=== PATIENT | female | born 2000 | race Caucasian/White ===

== ENCOUNTER 2019-01-25 19:42 | Emergency (ER) | payer BC ==
--- NOTE | 2019-01-25 19:48 | UC ---
Lower Extremity/Ankle HPI - HPI Summary HPI Summary: 18 yo female presents with LEFT ankle injury. She tells me that earlier today she was playing in her softball game and a line drive hit her in the outside of her left ankle. Since that time she has been having pain and unable to walk due to pain. The wellness trainer wrapped it in an ART wrap and applied ice and gave her crutches. Pt has been using crutches since the injury. - History of Current Complaint Stated Complaint: LEFT ANKLE/FOOT INJURY Time Seen by Provider: 01/25/19 19:46 Hx Obtained From: Patient Onset/Duration: Sudden Onset Severity Initially: Moderate Severity Currently: Moderate Pain Intensity: 6 Pain Scale Used: 0-10 Numeric Alleviating Factor(s): Rest, Elevation - Allergies/Home Medications Allergies/Adverse Reactions: Allergies Allergy/AdvReac Type Severity Reaction Status Date / Time No Known Allergies Allergy Verified 01/25/19 19:55 Home Medications: Home Medications Ibuprofen TAB* [Motrin TAB* 800 MG] 800 mg PO ONCE 01/25/19 [History Confirmed 01/25/19] l-Norgest/E.estradiol-E.estrad [Seasonique 0.15-0.03-0.01 Tab] 1 each PO DAILY 01/25/19 [History Confirmed 01/25/19] PMH/Surg Hx/FS Hx/Imm Hx - Additional Past Medical History Additional PMH: None Review of Systems All Other Systems Reviewed And Are Negative: Yes Constitutional: Positive: Negative Skin: Positive: Negative Respiratory: Positive: Negative Cardiovascular: Positive: Negative Neurovascular: Positive: Negative Musculoskeletal: Positive: Other: - Left ankle pain Neurological: Positive: Negative Psychological: Positive: Negative Physical Exam - Summary Physical Exam Summary: GENERAL: NAD. WDWN. No pain distress. SKIN: No rashes, sores, lesions, or open wounds. CHEST: No accessory muscle use. Breathing comfortably and in no distress. CV: Pulses intact PT and DP. Cap refill <2seconds MSK: LEFT ANKLE: Mild TTP overlying lateral malleolus, inferior and posterior lateral malleolus, and left 5th MTP pain. FROM. Strength 5/5. No edema or obvious bony deformities. Negative talar tilt. No increased laxity. NEURO: Alert. Sensations intact and symmetric B/L LEs PSYCH: Age appropriate behavior. Triage Information Reviewed: Yes Vital Signs: Vital Signs: Temp Pulse Resp BP Pulse Ox 98.3 F 66 16 123/57 100 01/25/19 19:51 01/25/19 19:51 01/25/19 19:51 01/25/19 19:51 01/25/19 19:51 Vital Signs Reviewed: Yes Lower Extremity Course/Dx - Course Course Of Treatment: XR: No radiologist reading after 1800, therefore wet read by myself is negative for fracture. I suspect her pain is due to the impact of the softball and advised to treat as a contusion. A gel splint and ART wrap were applied. Advised to RICE and use crutches. F/u if symptoms do not improve in a few days. - Differential Dx/Diagnosis Provider Diagnosis: Contusion of left ankle Discharge - Sign-Out/Discharge Documenting (check all that apply): Patient Departure All imaging exams completed and their final reports reviewed: No - Discharge Plan Condition: Stable Disposition: HOME Patient Education Materials: Contusion in Adults (ED) Referrals: Barbara Poe NP [Primary Care Provider] - Additional Instructions: If you develop a fever, shortness of breath, chest pain, new or worsening symptoms - please call your PCP or go to the ED. 1) Rest, Ice, and elevate your ankle/foot as much as possible 2) Use the ART wrap and gel splint for support and comfort 3) Use the crutches to be non-weight bearing until you are feeling better 4) If your symptoms do not improve in 5-7 days, please be rechecked - Billing Disposition and Condition Condition: STABLE Disposition: Home
[2019-01-25 19:54] VITALS: BP 123/57
--- NOTE | 2019-01-26 07:20 | UC ---
- Progress Note Progress Note: wet read correct Course/Dx - Diagnoses Provider Diagnoses: Contusion of left ankle Discharge - Sign-Out/Discharge Documenting (check all that apply): Post-Discharge Follow Up All imaging exams completed and their final reports reviewed: Yes - Discharge Plan Condition: Stable Disposition: HOME Patient Education Materials: Contusion in Adults (ED) Referrals: Barbara Poe [employer] [Primary Care Provider] - Additional Instructions: If you develop a fever, shortness of breath, chest pain, new or worsening symptoms - please call your PCP or go to the ED. 1) Rest, Ice, and elevate your ankle/foot as much as possible 2) Use the ART wrap and gel splint for support and comfort 3) Use the crutches to be non-weight bearing until you are feeling better 4) If your symptoms do not improve in 5-7 days, please be rechecked - Billing Disposition and Condition Condition: STABLE Disposition: Home
== END 2019-01-25 20:29 | disposition home or self-care (01) ==
LOC: UCCORT 19:42
DX: S90.02XA Contusion of left ankle, initial encounter (principal); W22.8XXA Striking against or struck by other objects, initial encounter; Y93.64 Activity, baseball; Y92.9 Unspecified place or not applicable
CPT/HCPCS: 99213; G0463